=== PATIENT | male | born 1965 | race Caucasian/White ===

== ENCOUNTER 2019-03-21 10:15 | Emergency (ER) | payer SELFPAY ==
[~2019-03-21] VITALS: Ht 177.8 cm; Wt 93.6 kg
[2019-03-21 10:20] VITALS: TEMP 98.4
[2019-03-21] MEDS ORDERED: LOTENSIN5 MG PO (10:31)
[2019-03-21 10:45] LABS: BASO # 0.1 (0.0-0.2); BASO % 0.8 % (0.0-2.0); EOS # 1.4 (0.0-0.7); EOS % 13.2 % (0-4.0); GRAN # 5.9 (1.4-6.5); GRAN % 55.6 % (42.2-75.2); HEMATOCRIT 49.8 % (42.0-52.0); HEMOGLOBIN 16.6 g/dl (13.5-18.0); LYMPH # 2.1 (1.2-3.4); LYMPH % 19.8 % (20.0-51.0); MEAN CELL VOLUME 90 fl (80.0-100.0); MEAN CORPUSCULAR HEMOGLOBIN 30 pg (27.0-31.0); MEAN CORPUSCULAR HGB CONC 33 g/dl (33.0-37.0); MEAN PLATELET VOLUME 10.7 fl (7.4-10.4); MONO # 1.1 (0.1-0.6); MONO % 10.3 % (1.7-9.3); PLATELET COUNT 268 K/mm3 (130-400); RED BLOOD COUNT 5.55 M/mm3 (4.20-5.60); REDCELL DISTRIBUTION WIDTH-CV 12.8 % (11.5-14.5)
[2019-03-21 10:51] LABS: ALANINE AMINOTRANSFERASE 20 U/L (21-72); ALBUMIN 4.3 gm/dL (3.5-5.0); ALKALINE PHOSPHATASE 62 U/L (50-136); ANION GAP 12 mmol/L (7-16); AST,SGOT 24 U/L (15-37); BILIRUBIN,TOTAL 0.6 mg/dL (0.0-1.0); BLOOD UREA NITROGEN 16 mg/dL (9-20); CALCIUM 9.2 mg/dL (8.4-10.2); CARBON DIOXIDE 23 mmol/L (22-30); CHLORIDE 106 mmol/L (98-107); CREATININE, serum 1.08 (0.66-1.25); GLUCOSE 108 mg/dL (74-106); LIPASE 71 U/L (23-300); POTASSIUM 4.2 mmol/L (3.4-5.0); SODIUM 141 mmol/L (137-145); TOTAL PROTEIN 7.8 gm/dL (6.4-8.2)
[2019-03-21 10:52] LABS: INR 0.9 (0.8-3.0); PROTHROMBIN TIME 10.9 SECONDS (9.7-12.8)
[2019-03-21 11:04] LABS: TROPONIN-I < 0.012 ng/mL (0.000-0.035)
[2019-03-21] MEDS ORDERED: PREDNISONE20 MG PO (12:00)
[2019-03-21] MEDS ORDERED: ZITHROMAX Z PA250 MG PO (12:00)
[2019-03-21] MEDS ORDERED: PROAIR HFA0.09 MG/AC IH (12:00)
[2019-03-21] MEDS ORDERED: LOTENSIN 1010 MG/TAB PO (12:04)
[2019-03-21 14:43] VITALS: BP 134/95; PULSE 96
== END 2019-03-21 14:50 | disposition home or self-care (01) ==
LOC: COL.ER 10:15
PROVIDERS: Emergency Medicine
DX: J44.1 Chronic obstructive pulmonary disease with (acute) exacerbation (principal); I10 Essential (primary) hypertension
CPT/HCPCS: A4216; J0696; J2270; J2930; J3475; J7030; Q9967